=== PATIENT | female | born 1965 | race Caucasian/White ===

== ENCOUNTER → 2021-07-20 | Outpatient (CLI) | payer MEDICAID ==
[~2021-07-20] MED LIST: FLEXERIL 1010 MG/TAB PO; MEDROL 4MG DOSPA4 MG PO; TYLENOL/CODEINE1 ML PO; ZITHROMAX 250M250 MG PO
== END ==
LOC: MC.RAD 15:45
DX: Z12.31 Encounter for screening mammogram for malignant neoplasm of breast (principal)

== ENCOUNTER 2021-09-30 20:53 | Emergency (ER) | payer MEDICAID ==
[~2021-09-30] VITALS: Ht 157.5 cm; Wt 59.1 kg
[2021-09-30 21:05] VITALS: TEMP 98.1
[2021-09-30 23:32] VITALS: BP 127/68; PULSE 74
== END 2021-09-30 23:32 | disposition home or self-care (01) ==
LOC: COL.ER 20:53
DX: G89.29 Other chronic pain (principal); M54.50 Low back pain, unspecified; M25.552 Pain in left hip
CPT/HCPCS: J1885; J2360